=== PATIENT | male | born 1990 | race Caucasian/White ===

== ENCOUNTER 2016-11-22 16:43 | Emergency (ER) | payer BC, OTHER ==
[2016-11-22] MEDS ORDERED: Sodium Chloride 0.9% 10 ML Syringe FLUSH PRN (16:51)
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
[2016-11-22 18:20] VITALS: BP 126/89
--- NOTE | 2016-11-23 13:54 | CR ---
Chest: Two views of the chest were obtained. Comparison: No previous chest x-ray. Heart size and mediastinum are normal. Lungs are clear with no acute infiltrates. Bony structures are unremarkable. Impression: 1. Nothing acute is identified on two-view chest x-ray. Diagnostic code #1
--- NOTE | 2016-11-23 17:25 | CT ---
CT cervical spine Technique: Multiple axial sections were obtained from above C1 inferiorly through the T2 vertebral body. Reconstructed sagittal and coronal images were reviewed. Findings: Visualized mastoid sinuses and middle ear cavities are clear. Posterior skull base is intact. Vertebral bodies and posterior arches are intact. No fracture is seen. No bony central or bony neural foraminal stenosis is seen. No abnormal subluxation is seen on the reconstructed sagittal images. Impression: 1. No acute abnormality is identified on CT study of the cervical spine. Diagnostic code #1 I agree with preliminary report issued by [facility] (report finalized on 11/22/16, 6:45 PM Central Time)
--- NOTE | 2016-11-23 17:25 | CT ---
Head CT Technique: Multiple axial sections through the brain were obtained. Intravenous contrast was not utilized. Findings: Ventricles along the basal cisterns and sulci over the convexities are within normal limits for the patient's age. No abnormal parenchymal densities are seen. No evidence of intracranial hemorrhage. No midline shift or mass effect is seen. Impression: 1. No acute abnormality is identified on noncontrast head CT study. Diagnostic code #1 I agree with preliminary report issued by [facility] (report finalized on 11/22/16, 6:40 PM Central Time)
== END 2016-11-22 18:15 | disposition home or self-care (01) ==
LOC: JD.ED 16:43
DX: S06.0X1A Concussion with loss of consciousness of 30 minutes or less, initial encounter (principal); S80.212A Abrasion, left knee, initial encounter; Z88.5 Allergy status to narcotic agent; Z91.018 Allergy to other foods; W22.8XXA Striking against or struck by other objects, initial encounter
CPT/HCPCS: 36415; 70450; 71020; 72125; 80053; 83690; 85025; 99283; J7050; 99284; 99285